=== PATIENT | female | born 2000 | race Caucasian/White ===

== ENCOUNTER 2019-01-26 08:52 | Emergency (ER) | payer SELFPAY ==
[~2019-01-26] VITALS: Ht 165.1 cm; Wt 59.5 kg
[2019-01-26 08:58] VITALS: BP 121/80; PULSE 102; RESP 18; Ht 165.1 cm; Wt 59.5 kg
[2019-01-26] MEDS ORDERED: SOD CHLORIDE 0.9% 1,000 ML IV STA (09:49)
[2019-01-26] MEDS ORDERED: ONDANSETRON INJ 8 MG in DEXTROSE 5% 50 ML IV STA (09:49)
[2019-01-26] MEDS ORDERED: ONDANSETRON 4 MG INJ ONE (09:59)
--- NOTE | 2019-01-26 10:53 | ERD ---
ER Documentation Chief Complaint Chief Complaint NAUSEA, VOMITING, ONSET 3 DAYS, PT 12 WKS PG HPI Pt is a 18-year-old female presenting for nausea/vomiting, headache, and low back pain for 3 days. She reports she is 12 weeks has been following up with her [facility] doctor regularly. Reports that she has not been able to eat anything for the last 3 days. She has experienced this before and has been given a prescription for metoclopramide 10 mg with no relief of her symptoms this time. She denies abdominal pain, fevers, diarrhea, burning sensation when urinating or increased urination. ROS All systems reviewed and are negative except as per history of present illness. Medications Home Meds Active Scripts Acetaminophen* (Tylophen*) 500 Mg Capsule, 1 CAP PO Q6H PRN for PAIN AND OR ELEVATED TEMP, #20 CAP Prov:NIKKI VALENTINE PA-C 01/26/19 Ondansetron (Ondansetron Odt) 4 Mg Tab.rapdis, 4 MG PO Q6H PRN for NAUSEA AND/OR VOMITING, #10 TAB Prov:NIKKI VALENTINE PA-C 01/26/19 Allergies Allergies: Coded Allergies: No Known Allergy (Unverified , 01/26/19) PMhx/Soc Medical and Surgical Hx: pt denies Medical Hx, pt denies Surgical Hx Hx Alcohol Use: No Hx Substance Use: No Hx Tobacco Use: No FmHx Family History: diabetes, coronary disease Physical Exam Vitals Vital Signs Date Temp Pulse Resp B/P (MAP) Pulse Ox O2 O2 Flow FiO2 Time Delivery Rate 01/26/19 98.3 102 18 121/80 98 08:58 (94) Physical Exam Const: Appears fatigued, dehydrated Head: Atraumatic Eyes: Normal Conjunctiva ENT: Dix, dry mucosa Neck: Full range of motion. No meningismus. Resp: Clear to auscultation bilaterally Cardio: Slightly tachycardic, no murmurs Abd: Soft, non tender. Normal bowel sounds Back: Nonspecific tenderness across lower back Ext: No cyanosis, or edema Neur: Awake and alert Psych: Normal Mood and Affect Result Diagram: 01/26/19 1003 01/26/19 1003 Results 24 hrs Laboratory Tests Test 01/26/19 09:56 01/26/19 10:03 Urine Color DELIA Urine Clarity SLIGHTLY CLOUDY Urine pH 6.0 Urine Specific [place] 1.027 Urine Ketones 2+ mg/dL Urine Nitrite NEGATIVE mg/dL Urine Bilirubin NEGATIVE mg/dL Urine Urobilinogen 2+ mg/dL Urine Leukocyte Esterase TRACE Mariano/ul Urine Microscopic RBC 0 /HPF Urine Microscopic WBC 10 /HPF Urine Squamous Epithelial Cells FEW /HPF Urine Bacteria FEW /HPF Urine Mucus MANY /HPF Urine Hemoglobin NEGATIVE mg/dL Urine Glucose NEGATIVE mg/dL Urine Total Protein 1+ mg/dl White Blood Count 5.4 10^3/ul Red Blood Count 4.47 10^6/ul Hemoglobin 13.0 g/dl Hematocrit 37.6 % Mean Corpuscular Volume 84.1 fl Mean Corpuscular Hemoglobin 29.1 pg Mean Corpuscular Hemoglobin Concent 34.6 g/dl Red Cell Distribution Width 13.4 % Platelet Count 195 10^3/UL Mean Platelet Volume 9.6 fl Immature Granulocytes % 0.400 % Neutrophils % 75.5 % Lymphocytes % 10.0 % Monocytes % 13.9 % Eosinophils % 0.0 % Basophils % 0.2 % Nucleated Red Blood Cells % 0.0 /100WBC Immature Granulocytes # 0.020 10^3/ul Neutrophils # 4.1 10^3/ul Lymphocytes # 0.5 10^3/ul Monocytes # 0.8 10^3/ul Eosinophils # 0.0 10^3/ul Basophils # 0.0 10^3/ul Nucleated Red Blood Cells # 0.0 10^3/ul Sodium Level 138 mmol/L Potassium Level 4.0 mmol/L Chloride Level 102 mmol/L Carbon Dioxide Level 25 mmol/L Anion Gap 11 Blood Urea Nitrogen 8 mg/dl Creatinine 0.61 mg/dl Est Glomerular Filtrat Rate mL/min > 60 mL/min Glucose Level 85 mg/dl Calcium Level 9.4 mg/dl Beta HCG, Quantitative 580103.0 mIU/ml Current Medications Medications Dose Sig/Silvia Start Time Status Last (Trade) Ordered Route PRN Stop Time Admin Dose Reason Admin Sodium 1,000 ml @ Q1H STAT 01/26/19 DC 01/26/19 Chloride 1,000 mls/hr IV 09:49 01/26/19 10:00 10:48 Ondansetron 54 ml @ ONCE STAT 01/26/19 DC 01/26/19 HCl 8 200 mls/hr IV 09:49 01/26/19 10:01 mg/Dextrose 10:05 Ondansetron 4 mg STK-MED 01/26/19 DC HCl (Zofran ONCE .ROUTE 09:59 01/26/19 Inj) 10:00 Procedures/MDM ED COURSE: The patient was stable throughout ED course. I kept the patient and family informed of laboratory and diagnostic imaging results throughout the ED course. MEDICATIONS GIVEN: IV fluids and Zofran Patient tolerated medication well with no adverse reactions. Patient reported improvement in pain. MEDICAL DECISION MAKING: Patient is a 18-year-old female for 12 weeks. She reports she is been having morning sickness the past month. Daughter has previously prescribed her metoclopramide 10 mg which has previously helped however it is not helping currently with her symptoms of nausea and vomiting. She denies abdominal pain at this time. Abdomen is soft at discharge. H&P and other data not c/w emergent process. Low suspicion for coronary syndrome, AAA, mesenteric ischemia, lower lobe pneumonia, DKA, bowel perforation, cholecystitis, choledocholithiasis, ascending cholangitis, hepatic abscess, pancreatitis, PUD, gastritis, GERD, splenic rupture, diverticulitis,nephrolithiasis, appendicitis, constipation. After receiving IV fluids and Zofran she states that she is feeling much better and was ready for discharge. Vital signs were reviewed. Patient is afebrile. Patient was not hypoxic. Patient was hemodynamically stable. PRESCRIPTION: Tylenol and Zofran DISCHARGE: At this time, patient is stable for discharge and outpatient management. I have instructed the patient to follow-up with his/her primary care physician in 1-2 days. I have discussed with the patient the possibility of needing to see a specialist for further workup and imaging studies if symptoms persist. I have instructed the patient to promptly return to the ER for any new or worsening symptoms including increased pain, fever, nausea, vomiting, weakness or LOC. The patient and/or family expressed understanding of and agreement with this plan. All questions were answered. Home care instructions were provided. Disclaimer: Inadvertent spelling and grammatical errors are likely due to EHR/dictation software use and do not reflect on the overall quality of patient care. Also, please note that the electronic time recorded on this note does not necessarily reflect the actual time of the patient encounter. Departure Condition: NIKKI Marrero PA-C Jan 26, 2019 10:53
[2019-01-26] MEDS ORDERED: ONDA4TAB14 PO (11:17)
[2019-01-26] MEDS ORDERED: ACET500C5 PO (11:18)
== END 2019-01-26 11:26 | disposition home or self-care (01) ==
LOC: FTE 08:52
DX: O21.9 Vomiting of pregnancy, unspecified (principal); Z3A.12 12 weeks gestation of pregnancy
CPT/HCPCS: 36415; 80048; 81001; 84702; 85025; 96374; 99284; J2405; J7030